=== PATIENT | female | born 1960 | race Caucasian/White ===

== ENCOUNTER 2016-10-17 09:41 | Inpatient (IN) | payer MEDICARE ==
[~2016-10-17] VITALS: Ht 165.1 cm; Wt 88.7 kg
--- NOTE | ~2016-10-17 | PR ---
[place], [place] PROGRESS NOTE NAME: JACY SMITH UNIT #: [id number] ROOM: 312 DOCTOR: Ivan COX,OVIDIO BIRTHDATE: [birth year] DOS: 10/28/2016 SUBJECTIVE: The patient seen and spoke with the staff. Per staff, the patient slept all night, but is still internally stimulated and hearing voices. Reportedly, she is medication compliant. The patient was pleasant, cooperative. She was in her bed. She said that she is still hearing voices, not command type. This is a bad thing about her. She said that voices are a little less than before. She also talked about being paranoid that also reduced significantly. While I was talking with her, she certainly told me that she had the right to know if she is doing anything wrong or not. I told her that why she felt like that, she did not answer my question, but I assured her that she has not done anything wrong and that she should continue taking her medication regularly. She wanted to go back to the same half-way that she came from. MENTAL STATUS EXAMINATION: The patient was pleasant, cooperative. Described her mood as "okay." Affect somewhat guarded. Thought process goal directed. No flight of ideas or loosening of associations. She reports auditory hallucinations, not command type. Denied visual hallucination. She is still paranoid. No overt delusion noted. Denied suicidal ideation, intent or plan. She also denied homicidal ideation, intent or plan. ASSESSMENT: Schizoaffective disorder. PLAN: 1. Continue current medication, need to give some time for the medication to give its full effect. 2. Continue redirection and supportive care. OVIDIO COX MD CM:JACY [id number] 1149 Ivan COX 10/28/16 1148 interface
--- NOTE | ~2016-10-17 | PR ---
[place], [place] [facility]GRESS [id number] UNIT #: [id number] ROOM: 312 DOCTOR: Ivan COX,OVIDIO BIRTHDATE: [birth year] DOS: 10/30/2016 PSYCHIATRIC PROGRESS NOTE SUBJECTIVE: The patient seen and spoke with the staff. Per staff, the patient is still paranoid and reported auditory hallucination, but she is doing much better than before. She is coming out from her room, more interactive and not ____ anymore. She is taking her medication and did not express any side effect from the medication also. The patient was pleasant, cooperative. She described her mood as "okay and good." She reports good sleep and appetite. She still wants to go close to her family. She said that she is not around this area. She would like to go near [facility]. I am not sure whether her family lives close to that place or not, but definitely I will ask the nursing home social worker to take a look into it. She denied a depressed mood or hopelessness. She kept on saying that she probably "live like that" all my life. MENTAL STATUS EXAMINATION: The patient was pleasant, cooperative, described her mood as "okay." Affect, mood congruent. Thought process goal directed. No flight of ideas, loosening of association. She reports auditory hallucination, not command type and less than before. She denied any visual hallucinations. She still feels paranoid at times. They are also much less than before. Denied any suicidal ideation, intent or plan. She also denied any homicidal ideation, intent or plan. ASSESSMENT: Schizoaffective disorder. PLAN: 1. Continue current medication and care. 2. Continue redirection. 3. Discharge planning. OVIDIO COX MD CM:JACY 0825 1634 Ivan COX 10/30/16 1633 interface
--- NOTE | ~2016-10-17 | PR ---
[place], [place] PROGRESS NOTE [id number] UN[facility] #: [id number] ROOM: 312 DOCTOR: Ivan COX,OVIDIO BIRTHDATE: [birth year] DOS: 10/26/2016 SUBJECTIVE: The patient seen and spoke with the staff. Per staff, the patient is still isolated, paranoid, taking her medications regularly. No behavioral problems or issues. The patient was pleasant and cooperative. She was in her room. She said that she is not going to come out. When asked why she did not come out, she did not say anything. She seems to be internally stimulated and preoccupied. She was little irritable. She denied any thoughts of harming herself or anyone else. She said she took her medication and did not have any side effect. MENTAL STATUS EXAMINATION: The patient was pleasant, cooperative, described her mood as "not good." Affect was guarded and irritable. Thought process goal directed. No flight of ideas or loosening of association. She even did not answer any question when asked about auditory hallucinations, but seems like she is internally stimulated. She is still delusional or paranoid. She denied suicidal ideation, intent or plan. She also denied homicidal ideation, intent or plan. ASSESSMENT: Schizoaffective disorder. PLAN: 1. I will increase Zyprexa to 10 mg twice a day to augment antipsychotic effect. 2. Continue redirection. 3. Supportive care. OVIDIO COX MD CM:JACY 4 1335 Ivan COX 10/26/16 1335 interface
--- NOTE | ~2016-10-17 | PR ---
[place], [place] PROGRESS NOTE NAME: JACY SMITH [facility] #: [id number] UNIT #: [id number] ROOM: 312 DOCTOR: Ivan COX,OVIDIO BIRTHDATE: [birth year] DOS: 10/22/2016 SUBJECTIVE: The patient seen and I spoke with the staff. Per the staff, the patient is doing better than before, got did not have any side effects. She had some issues with blood pressure, but the medical team is following her. The patient was pleasant, cooperative. She was in her room in the bed. She said that she is still hearing voices, not command type, but they are getting better. She reports good sleep and appetite. Denied any depressed mood or hopelessness. She did not express any concerns. Denied any side effect from the medication. MENTAL STATUS EXAMINATION: The patient was pleasant and cooperative. Described her mood as "okay." Affect, mood congruent. Thought process goal directed. No flight of ideas or loosening of association. She reports auditory hallucination. Denied visual hallucination. No delusion or paranoia noted. She denied suicidal ideation, intent or plan. She also denied homicidal ideation, intent or plan. ASSESSMENT: Schizoaffective disorder, still experiencing psychotic symptoms. PLAN: 1. Continue current medications and care. 2. Continue redirection. 3. Supportive care. OVIDIO COX MD CM:JACY 2119 0148 Ivan COX 10/23/16 0149 interface
--- NOTE | ~2016-10-17 | PR ---
[place], [place] PROGRESS NOTE NAME: [facility]ACY SMITH [facility] #: [id number] UNIT #: [id number] ROOM: 312 DOCTOR: Ivan COX,OVIDIO BIRTHDATE: [birth year] DOS: 10/23/2016 SUBJECTIVE: The patient ____ spoke with the staff. Per staff, patient did not sleep at all. They took off all her meds, wanted to leave the hospital, go to a different hospital. She was redirectable last night. The patient was pleasant, cooperative. She talked about not able to sleep last night. She said she took trazodone in the past and that helped her. She said that she is still hearing voices, but they are not as bad as before. MENTAL STATUS EXAMINATION: The patient was pleasant, cooperative. Described her mood as "____ good affect." Affect, mood congruent. Thought process goal directed. No flight of ideas or loosening of associations. She had auditory hallucinations, not command type. Denied visual hallucination. Somewhat paranoid. She denied suicidal ideation, intent or plan. She also denied suicidal ideation, intent or plan. ASSESSMENT: Schizoaffective disorder. PLAN: 1. I will start her on trazodone 100 mg at night. 2. I will reduce her p.o. Abilify. 3. Continue redirection. 4. Supportive care. OVIDIO COX MD CM:PNPEYTON 0909 1121 Ivan COX 10/23/16 6085 interface
--- NOTE | ~2016-10-17 | PR ---
[place], [place] PROGRESS NOTE NAME: [facility] SMITH [facility] [id number] UNIT #: [id number] ROOM: 312 DOCTOR: Ivan COX,OVIDIO BIRTHDATE: [birth year] DOS: 10/27/2016 SUBJECTIVE: The patient seen and spoke with the staff. Per staff, the patient is doing better than before. She is taking her medication regularly, but still paranoid and somewhat guarded, still talked about hearing voices. The patient was pleasant, cooperative. She was in the day area, which is kind of unusual. Usually she stays most of the time in her room. She said that she is feeling better than before, but still hearing voices. She then will start talking with some of the patients in the unit. She denied any side effect from the medication. She reported good sleep and appetite. MENTAL STATUS EXAMINATION: The patient was pleasant, cooperative. Described her mood as "okay." Affect, mood congruent. Thought process goal directed. No flight of ideas or loosening of association. She still reports auditory hallucination. Denied visual hallucination. Some paranoia is there. She denied suicidal ideation, intent or plan. She also denied homicidal ideation, intent or plan. Insight and judgment impaired. ASSESSMENT: Schizoaffective disorder, still psychotic. PLAN: 1. Continue current medication and care. 2. Continue redirection. 3. Supportive care. OVIDIO COX MD CM:PNPEYTON 53 1144 Ivan COX 10/28/16 1144 interface
--- NOTE | ~2016-10-17 | PR ---
[place], [place] PROGRESS NOTE NAME: [facility] SMITH [facility] [id number] UNIT #: [id number] ROOM: 312 DOCTOR: Ivan COX,OVIDIO BIRTHDATE: [birth year] DOS: 10/19/2016 SUBJECTIVE: The patient seen and spoke with the staff. Per staff, the patient is doing better, but still psychotic, still tries to elope from the unit. Medication compliant, easily redirectable. Reportedly, the patient had an UTI and she was started on antibiotic. The patient was pleasant, cooperative. She was in her room. She said that she would like to continue taking her medications. She says whenever she does not take medication, she does not do well. She seems to be internally stimulated. She denied any side effect from the medication. She reports good sleep and appetite. MENTAL STATUS EXAMINATION: The patient was pleasant and cooperative. Described her mood as "okay." Affect broad range. Thought process, goal directed with some flight of ideas, loosening of association. She denied auditory or visual hallucination, but seems responding to stimuli. She is delusional, paranoid. She denied suicidal ideation, intent or plan. She also denied homicidal ideation, intent or plan. ASSESSMENT: Schizoaffective disorder, still psychotic and delusional. PLAN: 1. Continue current medication and care. 2. Continue redirection 3. Encourage activities and groups. OVIDIO COX MD CM:PNTRANS 1915 0004 Ivan COX 10/20/16 0004 interface
--- NOTE | ~2016-10-17 | PR ---
[place], [place] PROGRESS NOTE [id number] UNIT #: [id number] ROOM: 312 DOCTOR: Ivan COX,OVIDIO BIRTHDATE: [birth year] DOS: 10/20/2016 The patient seen and spoke with the staff. Per staff, the patient slept well, doing well, got her long acting injection today. The patient was pleasant, cooperative. She was in her room. She said that she was doing good. She denied any side effect from the medication. She reports good sleep and appetite. She wanted to know when she can go home. MENTAL STATUS EXAMINATION: The patient was pleasant and cooperative. Described her mood as "good." Affect, mood congruent, guarded. Thought process goal directed. No flight of ideas, loosening of association. She denied auditory or visual hallucination. No delusion or paranoia noted. She denied suicidal ideation, intent or plan. She also denied homicidal ideation, intent or plan. ASSESSMENT: Schizoaffective disorder. PLAN: 1. Continue current medication and care. 2. Continue redirection. 3. Encourage activity and groups. OVIDIO COX MD CM:JACY 2136 2 Ivan COX 10/21/164 interface
--- NOTE | ~2016-10-17 | PR ---
[place], [place] PROGRESS NOTE NAME: [facility] SMITH [facility] [id number] UNIT #: [id number] ROOM: 312 DOCTOR: Ivan COX,OVIDIO BIRTHDATE: [birth year] DOS: 10/29/2016 SUBJECTIVE: The patient seen and spoke with the staff. Per staff, the patient is still paranoid, still hearing voices, but less than before. The patient was in the day area. She looks much relaxed. She said that she "slept like a rock" and happy about that. She said that the voices are still there and she still feels paranoid, but they are not "as bad as before." She also said that probably I have to leave like that." She denied any side effect from the medication. She denied depressed mood or hopelessness. Denied any other neurovegetative signs and symptoms of depression. She said her plan is to go back to the snf and if she does well, gradually, she will try to back close to her family. MENTAL STATUS EXAMINATION: The patient was pleasant, cooperative. Described her mood as "okay." Affect, mood congruent. Thought process goal directed. No flight of ideas, loosening of association. She reports auditory hallucination, not command type. Denied any visual hallucinations. She still feels paranoid but says that it is not as bad as before. Denied suicidal ideation, intent or plan. She also denied homicidal ideation, intent or plan. ASSESSMENT: Schizoaffective disorder. PLAN: 1. Continue current medication and care. 2. Continue redirection. 3. Discharge planning. OVIDIO COX MD CM:JACY 1923 8 Ivan COX 10/30/16518 interface
--- NOTE | ~2016-10-17 | PR ---
[place], [place] PROGRESS NOTE NAME: [facility] SMITH [facility] [id number] UNIT #: [id number] ROOM: 312 DOCTOR: Ivan COX,OVIDIO BIRTHDATE: [birth year] DOS: 10/21/2016 SUBJECTIVE: The patient seen and spoke with the staff. Per staff, the patient got her long acting injection, but still paranoid and guarded, not forthcoming, to herself. The patient was pleasant and cooperative. She was in the day. She said that she is doing "okay." She said that she would like to go back to the correction. She has reported good sleep and appetite. She has denied any side effect from the medication. She denied depressed mood or hopelessness. MENTAL STATUS EXAMINATION: The patient was pleasant and cooperative. Described her mood as "okay." Affect was mood congruent and guarded. Thought process goal directed. No flight of ideas or loosening of association. She denied auditory or visual hallucination. No delusion or paranoia noted. She denied suicidal ideation, intent or plan. She also denied homicidal ideation, intent or plan. ASSESSMENT: Schizoaffective disorder. PLAN: 1. Continue current medication and care. 2. Continue redirection. 3. Increase activity and groups. OVIDIO COX MD CM:PNPEYTON 1958 Ivan COX 10/22/1651 interface
--- NOTE | ~2016-10-17 | PR ---
[place], [place] PROGRESS NOTE [id number] UNIT #: [id number] ROOM: 312 DOCTOR: Ivan COX,OVIDIO BIRTHDATE: [birth year] DOS: 10/25/2016 PSYCHIATRIC PROGRESS NOTE SUBJECTIVE: The patient seen and spoke with the staff. Per staff, the patient is doing okay, slept all night, but still paranoid, taking her medication regularly. The patient was pleasant and cooperative. She was in her room, actually her room was locked. I had to take the nursing staff to open the room for her. She said that she is still hearing voices and they say bad thing about her, which she do not like and that is why she do not want to go out and participate in different groups. Reportedly, she also refused the lunch, but ate her dinner. She claims that she was on Zyprexa in the past which helped her. When I asked that if she wants to go back on Zyprexa, she said that she wants me to find out how much Zyprexa she was on. MENTAL STATUS EXAMINATION: The patient was pleasant, cooperative, described her mood as "okay." Affect was flat, guarded. Thought process goal directed. No flight of ideas or loosening of association. She reports auditory hallucination, not command type, derogatory type. Denied visual hallucinations. She seems still delusional and paranoid. Denied suicidal ideation, intent or plan. She also denied homicidal ideation, intent or plan. ASSESSMENT: Schizoaffective disorder. PLAN: 1. Continue current medication. 2. I will add Zyprexa 5 mg p.o. b.i.d. The patient was on Zyprexa before, claims that helped her. 3. Continue redirection. 4. Supportive care. OVIDIO COX MD CM:PNTRANS 21 1259 Ivan COX 10/26/16 1259 interface
--- NOTE | ~2016-10-17 | PR ---
[place], [place] PROGRESS NOTE [id number] UNIT #: [id number] ROOM: 312 DOCTOR: Ivan COX,OVIDIO BIRTHDATE: [birth year] DOS: 10/31/2016 The patient seen and spoke with the staff. Per staff, the patient did well after she got an Ativan yesterday. Reportedly, the patient was paranoid and was anxious because of the paranoia and she was given Ativan 1 mg. The Ativan was effective and she slept well last night after that. The patient was pleasant, cooperative. She was in the hallway. She said that she is feeling better today. She again said that "I slept like a rock." She says she still hears voices and the paranoia is less. She is taking her medication regularly. Did not have any side effect from the medication. She wants to go back to the [facility] that she came from or close to her family. MENTAL STATUS EXAMINATION: The patient was pleasant, cooperative. Described her mood as "good." Affect, mood congruent. Thought process goal directed. No flight of ideas, loosening of association. She still hears voices. Denied any visual hallucination. She still feels paranoid, but much less. Denied any suicidal ideation, intent or plan. She also denied any homicidal ideation, intent or plan. Insight and judgment poor to fair. ASSESSMENT: Schizoaffective disorder. PLAN: 1. Continue current medication. 2. Continue redirection 3. ...Encourage activities and groups. OVIDIO COX MD CM:JACY 0922 1042 Ivan COX 10/31/16 1042 interface
--- NOTE | ~2016-10-17 | DS ---
[place], [place] DISCHARGE SUMMARY NAME: JACY SMITH UNIT #: [id number] ROOM: 312 DOCTOR: EVA CURRIE BIRTHDATE: [birth year] DOS: 11/02/2016 CHIEF COMPLAINT: "Hi how are you." HISTORY OF PRESENT ILLNESS: The patient is a 55-year-old white female who is a resident of a half-way [facility] [place]. She does have a longstanding history of schizoaffective disorder and started decompensating at the half-way and she became paranoid and delusional, reported that she saw blood on the floor and that her children are , was paranoid and believed that everyone at the half-way were out to harm her. She was making calls to 911 and had attempted to elope from the facility. They tried to use p.r.n. medications at the half-way and those were ineffective. Her mood was very labile and her behavior was unpredictable, so she was admitted to the Behavioral Health Unit for med stabilization. PAST MEDICAL HISTORY: Significant for GERD, hypertension, allergic rhinitis, osteoarthritis and her longstanding psychiatric history of schizoaffective disorder. SUMMARY OF HOSPITAL COURSE: She was given a loading dose of Aristada and also started on p.o. Abilify, which we will continue for 2 weeks in order to get her levels to a therapeutic level. She was given an order for Thorazine p.o., which they did not necessarily unit. At the time of her admission, she was at significant risk for harm to herself or others and her medications were adjusted to bring her back to a psychiatrically stable condition. She is on valproic acid. Her level on November 01 was 67.7. She is also on Tegretol. That level was 10.6, although her levels are therapeutic. She has gradually become more interactive and cooperative on the unit day and has no issues with behaviors over the past few days. MENTAL STATUS ON DISCHARGE: She is alert, oriented and eager to get back to [place], eventually does want to go. Her eventual goal is to go home, but that is not realistic for her. She will remain at a long-term care facility. Her mood and affect are congruent. She denies any side effects from her medications. She denies at this time any hallucinations. She has very good insight into her illness as well and is doing well on the current combination of medications. Her next Aristada injection will be due in 4 weeks from the dose that was given on October 20. DIAGNOSIS: Schizoaffective disorder. DISPOSITION: She will be discharged back to [facility] in psychiatrically stable condition. Her prescriptions have been electronically transmitted to the pharmacy. [place], [place] DISCHARGE SUMMARY NAME: JACY SMITH UNIT #: [id number] ROOM: [facility] DOCTOR: EVA CURRIE BIRTHDATE: [birth year] Eva Currie NP CM:CHRISTOPHER 1106 1156 EVA CURRIE 11/02/16 1156 interface
--- NOTE | ~2016-10-17 | WRIGHTHP ---
[place], [place] PATIENT HISTORY AND PHYSICAL EXAM NAME: JACY SMITH UNIT #: [id number] ROOM: 312 DOCTOR: AUGUSTINE OATES MD BIRTHDATE: [birth year] DOS: 10/18/2016 INITIAL PSYCHIATRIC EVALUATION CHIEF COMPLAINT: "Get the hell out of my room, do not you dare touch me. I am going to kill you if you come in here." HISTORY OF PRESENT ILLNESS: This is a 55-year-old white female, who is well known to me from her stay at the [facility]. The patient has a lengthy psychiatric history of schizoaffective disorder and has been decompensating gradually over the last several months. She has become increasingly paranoid and delusional. At first, she reported seeing blood all over her floor and thought that her children were all . Now she believes that everyone at the alf and now here are trying to kill her and attack her. She has made multiple attempts to call 911 in order to get the police to intervene on her behalf and on multiple occasions, she has attempted to elope the facility having to be physically brought back into the facility and have PRNs be utilized to prevent harm to self and others. She is becoming increasingly more verbally and physically combative, striking out at staff repeatedly. Her behavior is so unpredictable. It was felt that she was putting on only herself at risk for harm, but also staff and other residents for harm. She is admitted now to rule out any organic factors, stabilize on medication, engage in individual and de leon milieu activity, returning to [facility] when psychiatrically stable. PAST MEDICAL HISTORY: Remarkable for allergies to ANTIHISTAMINES, RISPERDAL. She is also LACTOSE INTOLERANT AND HAS AN ALLERGY TO MAGNESIUM CHLORIDE. She has a past medical history significant for GERD, hypertension, allergic rhinitis, osteoarthritis as well as a lengthy history of schizoaffective disorder. MENTAL STATUS EXAMINATION: The patient is alert and oriented to self. I could not stay in her room very long as she became extremely threatening. She jumped from her bed and took a threatening stance towards me. She is grossly psychotic and very paranoid and believes that she needs to defend herself from anybody who was coming into her room because they plan to kill her as she stated to me will kill them first. DIAGNOSIS: Schizoaffective disorder. PLAN: Given the fact that she has become episodically compliant with her medicine, I have begun loading her with Abilify. I will increase the nighttime dose from 15 to 30 mg at bedtime and plan to load with Aristada 662 mg IM on Tuesday. I will also add a p.r.n. of Thorazine 50 mg IM q. 6 hours to go with her Geodon and Ativan. Her psychosis and paranoia is such that she is definitely at risk for harming herself or others and I would like to prevent this through the use of PRNs. We will attempt if at all possible to engage her in individual and de leon milieu activity. The ultimate plan is to stabilize and return back to the [facility]. [place], [place] PATIENT HISTORY AND PHYSICAL EXAM NAME: JACY SMITH UNIT #: [id number] ROOM: 312 DOCTOR: AUGUSTINE OATES MD BIRTHDATE: [birth year] AUGUSTINE OATES MD CM:HISPHYS:PATIENT HISTORY AND PHYSICAL EXAMINATION 4 4 AUGUSTINE OATES MD 10/18/16915 interface
--- NOTE | ~2016-10-17 | PR ---
[place], [place] [facility]GR[id number] UN[facility] #: [id number] ROOM: [id number] DOCTOR: Ivan COX,OVIDIO BIRTHDATE: [birth year] DOS: 10/24/2016 PSYCHIATRIC PROGRESS NOTE SUBJECTIVE: patient seen and spoke with the staff. Per staff, the patient is still paranoid. Reported auditory hallucination, but she is eating well and taking her medication regularly. Reportedly, she slept well last night also. The patient was pleasant and cooperative. She asked me when she can go home, said she is feeling better, still hearing voices, but says it is "not as bad." She denied any side effect from the medication. MENTAL STATUS EXAMINATION: The patient was pleasant, cooperative, described her mood as "okay." Affect, mood congruent. Thought process goal directed. No flight of ideas, loosening of associations. She reports auditory hallucinations, not command type. Denied visual hallucination. She is still paranoid. No overt delusion noted. She denied suicidal ideation, intent or plan. She also denied homicidal ideation, intent or plan. Insight and judgment poor. ASSESSMENT: Schizoaffective disorder. PLAN: 1. Continue current medication and care. 2. Continue redirection. 3. Discharge planning. OVIDIO COX MD CM:PNTRANS [id number] Ivan COX 10/24/16 2011 interface
[2016-10-17] MEDS ORDERED: ALDACTONE25 M1 PO (10:33)
[2016-10-17] MEDS ORDERED: BENZTROPINE ME0.5 MG PO (10:33)
[2016-10-17] MEDS ORDERED: ALLERGY RELIE15.8 ML NAS (10:34)
[2016-10-17] MEDS ORDERED: FLUOXETINE40 MG PO (10:35)
[2016-10-17] MEDS ORDERED: MELOXICAM7.5 MG PO (10:36)
[2016-10-17] MEDS ORDERED: PRAVASTATIN SOD40 MG PO (10:37)
[2016-10-17] MEDS ORDERED: OMEPRAZOLE20 M2 PO (10:37)
[2016-10-17] MEDS ORDERED: SEROQUEL100 MG PO (10:38)
[2016-10-17] MEDS ORDERED: SEROQUEL300 MG PO (10:38)
[2016-10-17] MEDS ORDERED: VITAMIN E400 UNI2 PO (10:40)
[2016-10-17] MEDS ORDERED: VITAMIN D50000 I3 PO (10:40)
[2016-10-17] MEDS ORDERED: CARBAMAZEPINE200 MG PO (10:41)
[2016-10-17] MEDS ORDERED: ZYRTEC10 MG PO (10:41)
[2016-10-17] MEDS ORDERED: PROPRANOLOL HCL40 M1 PO (10:42)
[2016-10-17] MEDS ORDERED: SENEXON-S 50 MG1 TAB PO (10:43)
[2016-10-17] MEDS ORDERED: DEPAKOTE250 MG PO (10:44)
[2016-10-17] MEDS ORDERED: LORAZEPAM0.5 MG PO (10:44)
[2016-10-17] MEDS ORDERED: TUSSIN100 MG/51 PO (10:46)
[2016-10-17 20:00] VITALS: BP 146/96
[2016-10-18 09:03] VITALS: BP 138/88
[2016-10-18 11:55] LABS: BASO # 0.1 10*3/uL (0.0-0.1); BASO % 0.6 % (0.0-1.0); EOS # 0.1 10*3/uL (0.0-0.4); HEMATOCRIT 43.9 % (37.0-47.0); HEMOGLOBIN 15.2 g/dl (12.0-16.0); LYMPH # 1.8 10*3/uL (1.3-4.4); LYMPH % 21.9 % (27.0-41.0); MEAN CELL VOLUME 95.9 fl (81.0-99.0); MEAN CORPUSCULAR HGB 33.2 pg (27.0-31.0); MEAN CORPUSCULAR HGB CONC 34.6 g/dl (33.0-37.0); MONO % 12.5 % (3.0-9.0); NEUT # 5.1 10*3/uL (2.3-7.9); NEUT % 63.8 % (47.0-73.0); PLATELET COUNT AUTOMATED 401 10*3/uL (130-400); RED BLOOD COUNT 4.58 10*6/uL (4.10-5.10); RED CELL DISTRI WIDTH 12.5 % (0-14.5)
[2016-10-18 12:06] LABS: ALBUMIN 3.7 gm/dl (3.1-4.5); ALKALINE PHOSPHATASE 100 U/L (45-117); BUN 18 mg/dl (7-24); CHLORIDE 109 mmol/L (98-107); CREATININE 0.76 mg/dL (0.55-1.02); SGOT/AST 20 IU/L (3-35); SGPT/ALT 23 U/L (12-78); SODIUM 141 mmol/L (136-145); TOTAL PROTEIN 7.7 gm/dL (6.4-8.2)
[2016-10-18 12:27] LABS: THYROID STIM HORMONE (HS) 0.526 uIU/ml (0.358-4.75)
[2016-10-18 12:36] LABS: CARBAMAZEPINE (TEGRETOL) TOTAL 12.5 ug/ml (4-12)
[2016-10-18 13:01] LABS: VITAMIN D, 25-HYDROXY 48.9 ng/mL (30-100)
[2016-10-18 20:07] VITALS: BP 134/92
[2016-10-19 04:48] LABS: BILIRUBIN 1+ (NEGATIVE); BLOOD NEGATIVE (NEGATIVE); CLARITY CLEAR (CLEAR); COLOR YELLOW (YELLOW); GLUCOSE NEGATIVE (NEGATIVE); KETONE 1+ (NEGATIVE); LEUKO ESTERASE 2+ (NEGATIVE); NITRITE NEGATIVE (NEGATIVE); UROBILINOGEN 0.2 E.U./dl (0.2-1.0)
[2016-10-19 05:08] LABS: EPITHELIAL CELLS 15-20
[2016-10-19 05:09] LABS: RBC 16-20 rbc/hpf (0-2)
[2016-10-19 05:12] LABS: BACTERIA TRACE
[2016-10-19 08:04] VITALS: BP 138/88
[2016-10-19 20:13] VITALS: BP 140/78
[2016-10-20 08:10] VITALS: BP 138/90
[2016-10-20 20:00] VITALS: BP 98/60
[2016-10-21 08:02] VITALS: BP 115/63
[2016-10-21 10:20] LABS: BUN 15 mg/dl (7-24); CHLORIDE 100 mmol/L (98-107); CREATININE 0.78 mg/dL (0.55-1.02); POTASSIUM 3.4 mmol/L (3.5-5.1); SODIUM 138 mmol/L (136-145)
[2016-10-21 20:09] VITALS: BP 144/96
[2016-10-22 07:39] LABS: BUN 13 mg/dl (7-24); CHLORIDE 105 mmol/L (98-107); CREATININE 0.66 mg/dL (0.55-1.02); POTASSIUM 3.8 mmol/L (3.5-5.1); SODIUM 140 mmol/L (136-145)
[2016-10-22 07:50] VITALS: BP 123/62
[2016-10-22 20:00] VITALS: BP 157/79
[2016-10-23 08:18] VITALS: BP 110/76; BP 116/83
[2016-10-23 20:00] VITALS: BP 123/71
[2016-10-24 08:38] VITALS: BP 134/84
[2016-10-24 20:23] VITALS: BP 140/82
[2016-10-25 10:26] VITALS: BP 146/75
[2016-10-25 20:00] VITALS: BP 137/81
[2016-10-26 06:10] LABS: BASO % 0.8 % (0.0-1.0); EOS # 0.1 10*3/uL (0.0-0.4); EOS % 1.8 % (1.0-4.0); HEMATOCRIT 42.2 % (37.0-47.0); HEMOGLOBIN 13.3 g/dl (12.0-16.0); LYMPH # 2.1 10*3/uL (1.3-4.4); LYMPH % 41.1 % (27.0-41.0); MEAN CELL VOLUME 104.5 fl (81.0-99.0); MEAN CORPUSCULAR HGB 32.9 pg (27.0-31.0); MEAN CORPUSCULAR HGB CONC 31.5 g/dl (33.0-37.0); MEAN PLATELET VOLUME 9.7 fl (9.6-12.3); MONO # 0.5 10*3/uL (0.1-1.0); MONO % 9.9 % (3.0-9.0); NEUT # 2.4 10*3/uL (2.3-7.9); NEUT % 46.2 % (47.0-73.0); PLATELET COUNT AUTOMATED 303 10*3/uL (130-400); RED BLOOD COUNT 4.04 10*6/uL (4.10-5.10); WHITE BLOOD COUNT 5.1 10*3/uL (4.8-10.8)
[2016-10-26 06:33] LABS: ALBUMIN 2.9 gm/dl (3.1-4.5); ALKALINE PHOSPHATASE 70 U/L (45-117); BUN 19 mg/dl (7-24); CHLORIDE 116 mmol/L (98-107); CREATININE 0.68 mg/dL (0.55-1.02); POTASSIUM 3.8 mmol/L (3.5-5.1); SGOT/AST 10 IU/L (3-35); SGPT/ALT 17 U/L (12-78); SODIUM 148 mmol/L (136-145); TOTAL PROTEIN 6.5 gm/dL (6.4-8.2)
[2016-10-26 08:04] VITALS: BP 152/75
[2016-10-26 20:06] VITALS: BP 134/76
[2016-10-27 07:22] LABS: BILIRUBIN NEGATIVE (NEGATIVE); BLOOD NEGATIVE (NEGATIVE); CLARITY SL CLOUDY (CLEAR); COLOR YELLOW (YELLOW); GLUCOSE NEGATIVE (NEGATIVE); KETONE TRACE (NEGATIVE); LEUKO ESTERASE 1+ (NEGATIVE); NITRITE NEGATIVE (NEGATIVE); UROBILINOGEN 0.2 E.U./dl (0.2-1.0)
[2016-10-27 07:29] LABS: RBC 0-2 rbc/hpf (0-2)
[2016-10-27 07:30] LABS: BACTERIA TRACE
[2016-10-27 08:00] VITALS: BP 156/96
[2016-10-27 20:09] VITALS: BP 138/84
[2016-10-28 06:28] LABS: BASO # 0.1 10*3/uL (0.0-0.1); BASO % 0.9 % (0.0-1.0); EOS # 0.2 10*3/uL (0.0-0.4); EOS % 3.9 % (1.0-4.0); HEMATOCRIT 40.5 % (37.0-47.0); HEMOGLOBIN 13.1 g/dl (12.0-16.0); LYMPH # 2.2 10*3/uL (1.3-4.4); MEAN CELL VOLUME 101.8 fl (81.0-99.0); MEAN CORPUSCULAR HGB 32.9 pg (27.0-31.0); MEAN CORPUSCULAR HGB CONC 32.3 g/dl (33.0-37.0); MEAN PLATELET VOLUME 9.6 fl (9.6-12.3); MONO # 0.5 10*3/uL (0.1-1.0); MONO % 9.9 % (3.0-9.0); NEUT # 2.4 10*3/uL (2.3-7.9); NEUT % 45.1 % (47.0-73.0); PLATELET COUNT AUTOMATED 289 10*3/uL (130-400); RED BLOOD COUNT 3.98 10*6/uL (4.10-5.10); RED CELL DISTRI WIDTH 12.6 % (0-14.5); WHITE BLOOD COUNT 5.4 10*3/uL (4.8-10.8)
[2016-10-28 06:48] LABS: ALBUMIN 2.9 gm/dl (3.1-4.5); BUN 11 mg/dl (7-24); CHLORIDE 112 mmol/L (98-107); POTASSIUM 3.7 mmol/L (3.5-5.1); SODIUM 146 mmol/L (136-145)
[2016-10-28 06:52] LABS: ALKALINE PHOSPHATASE 73 U/L (45-117); CREATININE 0.72 mg/dL (0.55-1.02); SGOT/AST 11 IU/L (3-35); SGPT/ALT 16 U/L (12-78); TOTAL PROTEIN 6.2 gm/dL (6.4-8.2)
[2016-10-28 07:52] VITALS: BP 141/85
[2016-10-28 19:39] VITALS: BP 109/61
[2016-10-29 08:11] VITALS: BP 144/87
[2016-10-29 20:08] VITALS: BP 143/83
[2016-10-30 08:05] VITALS: BP 125/75
[2016-10-30 19:55] VITALS: BP 124/71
[2016-10-31 07:57] VITALS: BP 131/91
[2016-10-31 19:54] VITALS: BP 116/78
[2016-11-01 08:03] VITALS: BP 130/60
[2016-11-01 12:19] LABS: VALPROIC ACID (DEPAKENE) 67.7 ug/ml (50-100)
[2016-11-01 12:28] LABS: CARBAMAZEPINE (TEGRETOL) TOTAL 10.6 ug/ml (4-12)
[2016-11-01 20:00] VITALS: BP 123/78
[2016-11-02] MEDS ORDERED: MELOXICAM15 MG PO (08:39)
[2016-11-02] MEDS ORDERED: LISINOPRIL10 M1 PO (08:39)
[2016-11-02] MEDS ORDERED: ARISTADA662 MG/2.4 IM (09:22)
[2016-11-02] MEDS ORDERED: BENZTROPINE ME0.5 MG PO (09:22)
[2016-11-02] MEDS ORDERED: Vitamin D PO (09:22)
[2016-11-02] MEDS ORDERED: ABILIFY20 MG PO (09:22)
[2016-11-02] MEDS ORDERED: OLANZAPINE10 MG PO (09:22)
[2016-11-02] MEDS ORDERED: DIVALPROEX SOD250 MG PO (09:22)
[2016-11-02] MEDS ORDERED: CARBAMAZEPINE200 MG PO (09:22)
[2016-11-02 09:24] VITALS: BP 121/70
== END 2016-11-02 16:28 | disposition home or self-care (01) | DRG 885 ==
LOC: 3N 09:41
PROVIDERS: Internal Medicine; Internal Medicine Hospice and Palliative Medicine; Psychiatry & Neurology Psychiatry; Registered Nurse; ADMIT Psychiatry & Neurology Psychiatry
DX: F25.9 Schizoaffective disorder, unspecified (principal); E87.8 Other disorders of electrolyte and fluid balance, not elsewhere classified; E44.0 Moderate protein-calorie malnutrition; E87.0 Hyperosmolality and hypernatremia; N39.0 Urinary tract infection, site not specified; K21.9 Gastro-esophageal reflux disease without esophagitis; I10 Essential (primary) hypertension; J30.9 Allergic rhinitis, unspecified; M15.9 Polyosteoarthritis, unspecified; R73.03 Prediabetes; F41.1 Generalized anxiety disorder; E78.00 Pure hypercholesterolemia, unspecified; F31.30 Bipolar disorder, current episode depressed, mild or moderate severity, unspecified; D47.3 Essential (hemorrhagic) thrombocythemia; E87.6 Hypokalemia; Z88.2 Allergy status to sulfonamides; Z88.8 Allergy status to other drugs, medicaments and biological substances; Z79.899 Other long term (current) drug therapy; Z68.32 Body mass index [BMI] 32.0-32.9, adult